=== PATIENT | female | born 1985 | race African-American/Black ===

== ENCOUNTER 2019-09-24 00:53 | Outpatient (CLI) | payer OTHER, SELFPAY ==
[2019-09-24 17:34] LABS: SARS-CoV-2 RNA PCR Negative
== END 2019-09-24 00:54 | disposition home or self-care (01) ==
LOC: ANHCOVIDDT 00:54
PROVIDERS: Visit Provider Obstetrics & Gynecology
DX: Z01.818 Encounter for other preprocedural examination (principal); Z11.59 Encounter for screening for other viral diseases
CPT/HCPCS: 87635; C9803; U0003

== ENCOUNTER 2019-09-26 00:54 | Day surgery (SDC) | payer OTHER, SELFPAY ==
[2019-09-15 17:27] VITALS: BMI 46.6
--- NOTE | 2019-09-26 07:42 | P.PNAN_ITS ---
Anes - Initial Pre Proc Eval Procedure: Operation Date: 09/26/19 12:00 Proposed Procedures p Hysteroscopy Dilation and Curettage, With Possible MyoSure - Shantanu Issa MD Date/Time: 09/26/19 07:42 Surgeon: Shantanu Issa MD Pre Op Diagnosis: Uterine Fibroids Patient Data Age: 34 Gender: F Height: 1.7 m Weight: 135.17 kg Allergies Allergy/AdvReac Type Severity Reaction Status Date / Time cephalexin Allergy Intermediate Rash Verified 09/26/19 10:13 Home Medications Medication Instructions Recorded Confirmed Type alprazolam [Xanax] 0.25 mg PO PRN PRN 09/15/19 09/26/19 History Patient hx anesthesia problems: none Family hx anesthesia problems: none [facility] Past Medical History Medical History Leiomyoma Morbid obesity with BMI of 40.0-44.9, adult Anes - Eval Final PreProcedure Day of Procedure 09/26/19 07:42 Patient weight: morbidly obese Heart: regular rate and rhythm Lungs: clear to auscultation and normal air movement Airway: Mallampati scale class II Neurological: alert and oriented Last oral intake: >/= 8 hours ASA classification: III Emergent: no Anesthetic plan: proceed Anesthesia type and monitoring: general LMA and ETT Informed Consent: The patient's anesthetic plan and its attendant risks and benefits were discussed with the patient/family/POA. Questions were solicited and answers provided to the satisfaction of the patient/family/POA.
--- NOTE | 2019-09-26 08:59 | PM.HPGS ---
History of Present Illness History of Present Illness Consent: Risks, benefits, and alternatives have been discussed and questions answered. Patient agrees to proceed with procedure. Chief complaint: Uterine Fibroids Narrative: Kimberly Back is a 34 year old female with fibroids. history of 14 weeks pprom demise. [facility] Past Medical History Medical History Leiomyoma Morbid obesity with BMI of 40.0-44.9, adult Meds Home Medications and Allergies Home Medications Medication Instructions Recorded Confirmed Type alprazolam [Xanax] 0.25 mg PO PRN PRN 09/15/19 09/15/19 History Allergies Allergy/AdvReac Type Severity Reaction Status Date / Time cephalexin Allergy Rash Verified 09/15/19 17:40 Assessment and Plan Assessment and plan (1) Leiomyoma: Code(s): D21.9 - Benign neoplasm of connective and other soft tissue, unspecified Status: Acute Assessment and Plan: Hysteroscopy D and C with possible Myosure.
[2019-09-26] MEDS: LACTATED RINGERS 1,000 ML 30 ML IV CONT (10:40)
[2019-09-26 11:12] VITALS: BP 131/86; PULSE 81; RESP 16; TEMP 36.1; O2SAT 100
--- NOTE | 2019-09-26 12:24 | PM.OP ---
Procedure Note - Brief Procedure Note - Brief Date of procedure: 09/26/19 Pre-op diagnosis: Uterine Fibroids Post-op diagnosis: same Procedure performed: hysteroscopy dilation and curettage Anesthesia: MAC and local Surgeon: Shantanu Issa MD Estimated blood loss (mL): 10 Drains: No Packing: No Pathology: yes Complications: None Condition: stable Disposition: observation Findings: bilateral ostia normal uterine cavity
[2019-09-26 12:28] VITALS: BP 134/86; PULSE 87; RESP 18; O2SAT 100
[2019-09-26 12:55] VITALS: BP 126/71; PULSE 78; RESP 16; O2SAT 100
[2019-09-26 13:20] VITALS: BP 136/63; PULSE 65; RESP 16
--- NOTE | 2019-09-27 14:09 | OP_ITS ---
DATE OF PROCEDURE: 09/26/2019 PREOPERATIVE DIAGNOSIS: Fibroids. POSTOPERATIVE DIAGNOSIS: Fibroids. PROCEDURE: Hysteroscopy with dilation and curettage. ANESTHESIA: MAC with paracervical block. COMPLICATIONS: None. ESTIMATED BLOOD LOSS: 10 mL. DESCRIPTION OF PROCEDURE: The patient was taken to the operating room with IV running, prepared and draped in a normal sterile fashion, placed in a dorsal lithotomy position, prepped and draped in normal sterile fashion. A bivalve speculum was placed into the vagina. Anterior lip of the cervix was grasped with a single-tooth tenaculum. The cervix was sounded to 8 cm. The cervix was injected with 5 cc bilaterally at 2 and 10 o'clock position with 1% lidocaine. The cervix was serially dilated with Hegar dilators. Scope introduced and revealed a normal uterine cavity with bilateral ostia. No fibroids or polyps noted in the endometrial cavity. Sharp curettage was performed in all 4 quadrants. Endometrial sampling was sent to pathology. The patient tolerated the procedure well. Sponge, lap, and needle counts were correct x2. D I MT: Mile
== END 2019-09-26 13:30 | disposition home or self-care (01) ==
PROVIDERS: Visit Provider Obstetrics & Gynecology
PROC: 0U5B8ZZ Destruction of Endometrium, Via Natural or Artificial Opening Endoscopic (ICD-10-PCS; CPT 58563; principal; 2019-09-26 12:00)
DX: D25.9 Leiomyoma of uterus, unspecified (principal); E66.01 Morbid (severe) obesity due to excess calories; Z68.42 Body mass index [BMI] 45.0-49.9, adult
CPT/HCPCS: 58558; 88305; A9270; J2250; J2704; J3010; J7030; J7120

== ENCOUNTER 2020-02-02 10:19 | Outpatient (CLI) | payer OTHER, SELFPAY ==
--- NOTE | ~2020-02-02 | XR_ITS ---
EXAMINATION: XR hysterosalpingogram INDICATION: Infertility evaluation TECHNIQUE: Hysterosalpingogram was performed by Dr. Shantanu Issa MD with fluoroscopic guidance. I was present to obtain fluoroscopic images. Fluoroscopy exposure time was 0.4 minutes. The DAP for th is procedure was 3.39 Gycm2. FINDINGS: Chief Customer Officer radiograph demonstrates an unremarkable pelvis. Fluoroscopic images demonstrate a no rmal appearing endometrial cavity which has been cannulated. Upon injection of contrast, both fallop vinod tubes opacify and are normal in appearance. There is free spillage bilaterally. Uterus is withou t evidence of synechia. IMPRESSION: Patent fallopian tubes. Reviewed, dictated and finalized at location A. ER AND GUIDANCE COUNSELOR IMPRESSION: Patent fallopian tubes.
== END 2020-02-02 10:20 | disposition home or self-care (01) ==
LOC: ANHIMG 10:27
PROVIDERS: Visit Provider Obstetrics & Gynecology
DX: Z31.41 Encounter for fertility testing (principal)
CPT/HCPCS: 58340; 74740